=== PATIENT | female | born 1985 | race Caucasian/White ===

== ENCOUNTER 2017-10-25 13:05 | Emergency (ER) | payer OTHER ==
[~2017-10-25] VITALS: Ht 162.6 cm; Wt 63.6 kg
[2017-10-25] MEDS ORDERED: SERT100T12 PO (13:14)
[2017-10-25] MEDS ORDERED: HYDROCODONE/ACETAMINOPHEN 5-325 MG TABLET PO ONE (13:30)
[2017-10-25 14:20] VITALS: BP 120/72
== END 2017-10-25 14:51 | disposition home or self-care (01) ==
LOC: EMS 13:08
DX: M25.521 Pain in right elbow (principal); R03.0 Elevated blood-pressure reading, without diagnosis of hypertension; Z88.5 Allergy status to narcotic agent; W18.39XA Other fall on same level, initial encounter; Y93.89 Activity, other specified; Y92.89 Other specified places as the place of occurrence of the external cause; Y99.8 Other external cause status
CPT/HCPCS: 99284

== ENCOUNTER 2018-01-10 11:40 | Emergency (ER) | payer OTHER ==
[~2018-01-10] VITALS: Ht 162.6 cm; Wt 65.9 kg
[~2018-01-10 11:40] MED LIST: SERT100T12 PO
[2018-01-10] MEDS ORDERED: VENL50TA44 PO (11:43)
[2018-01-10 11:45] VITALS: BP 126/77
[2018-01-10 13:10] LABS: INFLUENZA TYPE A NEGATIVE FOR TYPE A (NEGATIVE); INFLUENZA TYPE B NEGATIVE FOR TYPE B (NEGATIVE)
[2018-01-10] MEDS ORDERED: VENL-67 PO (13:42)
[2018-01-10] MEDS ORDERED: LORazepam 1 MG TABLET PO ONE (13:45)
== END 2018-01-10 14:19 | disposition home or self-care (01) ==
LOC: EMS 11:40
DX: J06.9 Acute upper respiratory infection, unspecified (principal); Z88.5 Allergy status to narcotic agent; Z90.49 Acquired absence of other specified parts of digestive tract
CPT/HCPCS: 87804; 93005; 99285